=== PATIENT | male | born 1965 | race Caucasian/White ===

== ENCOUNTER 2017-04-06 08:50 | Emergency (ER) | payer BC ==
[~2017-04-06] VITALS: Ht 177.8 cm; Wt 45.5 kg
[2017-04-06] MEDS ORDERED: METO1TAB32 (09:03)
[2017-04-06] MEDS ORDERED: LISI40TAB (09:03)
[2017-04-06 09:54] LABS: BASO % 0.4 % (0.0-1.0); EOS # 0.1 K/mm3 (0.0-0.50); EOS % 1.6 % (0.0-3.0); LARGE UNSTAINED CELL # 0.2 K/mm3 (0.0-0.4); LARGE UNSTAINED CELL % 2.5 % (0.0-4.0); LYMPH # 1.8 K/mm3 (1.5-4.5); LYMPH % 23.9 % (24.0-44.0); MEAN CORPUSCULAR HEMOGLOBIN 31.6 pg (27.0-33.0); MEAN CORPUSCULAR HGB CONC 36.3 g/dl (32.0-36.5); MEAN CORPUSCULAR VOLUME 87.1 fl (80.0-96.0); MONO # 0.4 K/mm3 (0.0-0.8); MONO % 5.4 % (0.0-5.0); NEUTROPHILS # 4.9 K/mm3 (1.8-7.7); NEUTROPHILS % 66.2 % (36.0-66.0); PLATELET COUNT, AUTOMATED 303 k/mm3 (150-450); RED CELL DISTRIBUTION WIDTH 12.9 % (11.5-14.5); WHITE BLOOD COUNT 7.3 K/mm3 (4.0-10.0)
[2017-04-06] MEDS ORDERED: METOPROLOL SUCC *XL* 25MG TAB (TopROL *XL*) PO ONE (10:00)
[2017-04-06 10:08] LABS: ALBUMIN 3.7 GM/DL (3.2-5.2); ALKALINE PHOSPHATASE 75 U/L (45-117); ALT/SGPT 30 U/L (12-78); ANION GAP 8 MEQ/L (8-16); AST/SGOT 13 U/L (15-37); BILIRUBIN,DIRECT 0.1 MG/DL (0.0-0.2); BILIRUBIN,TOTAL 0.7 MG/DL (0.2-1.0); BLOOD UREA NITROGEN 14 MG/DL (7-18); CALCIUM LEVEL 9.4 MG/DL (8.5-10.1); CARBON DIOXIDE LEVEL 26 MEQ/L (21-32); CHLORIDE LEVEL 110 MEQ/L (98-107); GLOMERULAR FILTRATION RATE > 60.0 (>60); GLUCOSE, FASTING 93 MG/DL (70-105); POTASSIUM SERUM 4.2 MEQ/L (3.5-5.1); SODIUM LEVEL 144 MEQ/L (136-145); TOTAL PROTEIN 7.4 GM/DL (6.4-8.2)
[2017-04-06] MEDS ORDERED: LISINOPRIL 40 MG TAB PO ONE (10:15)
[2017-04-06] MEDS ORDERED: KETOROLAC 30 MG/ML VIAL (J1885) IV ONE (10:45)
[2017-04-06] MEDS ORDERED: ISOVUE-370 76% 100ML VIAL (Q9967) As Ordered ONE (11:05)
--- NOTE | 2017-04-06 11:43 | REP ---
CHEST, TWO VIEWS: There is no evidence of acute infiltrate. No pleural effusion is seen. The heart is normal in size. The mediastinal silhouette is unremarkable. The visualized osseous structures are intact. IMPRESSION: No acute pulmonary disease. Signed by Rm Hill MD 04/06/2017 07:32 P
--- NOTE | 2017-04-06 12:26 | REP ---
RIGHT UPPER QUADRANT ULTRASOUND: Real-time sonographic evaluation of the right upper quadrant is performed. The gallbladder demonstrates no evidence of intraluminal sludge or calculi, wall thickening or pericholecystic fluid. There is no intrahepatic or extrahepatic biliary dilatation, the common bile duct measuring 3 mm in diameter. The liver and pancreas demonstrate no gross mass. Pancreas is not well seen due to overlying bowel gas. The right kidney demonstrates no hydronephrosis or nephrolithiasis with normal size at 12.7 cm in length. IMPRESSION: Negative right upper quadrant ultrasound. Signed by Rm Hill MD 04/06/2017 07:36 P
[2017-04-06] MEDS ORDERED: CHLO125TA PO (12:47)
[2017-04-06] MEDS ORDERED: NAPR500T PO (12:47)
[2017-04-06 12:52] LABS: FREE T4 1.07 NG/DL (0.76-1.46)
[2017-04-06 12:57] VITALS: BP 140/81
--- NOTE | 2017-04-06 13:13 | REP ---
CT ANGIOGRAM OF THE CHEST: TECHNIQUE: Axial contrast enhanced images from the thoracic inlet to the upper abdomen using 100 mL Isovue 370 intravenous contrast material with multiplanar reformations. There is no CT evidence of pulmonary embolism. Heart is not enlarged. There are subcentimeter mediastinal lymph nodes which appear stable compared to the prior CT of the chest 09/15/2012 at [facility]. There is no pleural or pericardial effusion. Mild bibasilar fibroatelectatic change is noted. There is a nodule in the right lobe of the thyroid which is heterogeneous and measures about 3 cm in maximum diameter. Nonemergent thyroid ultrasound is recommended to further evaluate. There is no thoracic aortic aneurysm or dissection. The visualized upper abdominal structures appear unremarkable. IMPRESSION: No CT evidence of pulmonary embolism. Right thyroid nodule 3 cm in maximum diameter. Recommend further evaluation with thyroid ultrasound. Signed by Rm Hill MD 04/06/2017 07:38 P
--- NOTE | 2017-04-07 05:59 | ECGEPIP ---
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 RBBB NSTTW ABNORMALITIES NO PRIORS Electronically Signed On 04-07-2017 5:58:54 EDT by Sb Quinones
--- NOTE | 2017-04-07 06:00 | ECGEPIP ---
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 RBBB SIMILAR TO PRIOR ON SAME DATE Electronically Signed On 04-07-2017 6:00:22 EDT by Sb Quinones
--- NOTE | 2017-04-07 08:25 | ED PDOC ---
Post-Departure Follow-Up radiology report faxed to [facility] Dr. Maricruz caceres Sarah MD Apr 07, 2017 08:25
== END 2017-04-06 12:58 | disposition home or self-care (01) ==
LOC: M ED 08:50
DX: R09.1 Pleurisy (principal); I10 Essential (primary) hypertension; R00.1 Bradycardia, unspecified; E04.1 Nontoxic single thyroid nodule; Z79.899 Other long term (current) drug therapy; Z82.49 Family history of ischemic heart disease and other diseases of the circulatory system
CPT/HCPCS: 71020; 71275; 76705; 80048; 80076; 82550; 82553; 83690; 84439; 84443; 85025; 85379; 93005; 93041; 94010; 94760; 96374; 99285; J1885; Q9967

== ENCOUNTER → 2018-06-22 | Outpatient (REF) | payer BC | LOC: M LAB REF 13:16 | DX: L02.413 Cutaneous abscess of right upper limb (principal) | CPT/HCPCS: 87205 ==

== ENCOUNTER → 2018-09-26 | Outpatient (REF) | payer BC ==
[~2018-09-26] MED LIST: CHLO125TA PO; LISI40TA; METO1TAB32; NAPR-50 PO
[2018-09-26 13:38] LABS: BASO % 0.5 % (0.0-1.0); EOS # 0.2 10^3/uL (0.0-0.50); EOS % 2.5 % (0.0-3.0); HEMOGLOBIN 15.4 g/dl (13.5-17.5); LYMPH # 1.9 10^3/uL (1.5-4.5); LYMPH % 30.3 % (24.0-44.0); MEAN CORPUSCULAR HEMOGLOBIN 29.7 pg (27.0-33.0); MEAN CORPUSCULAR HGB CONC 34.2 g/dl (32.0-36.5); MEAN CORPUSCULAR VOLUME 86.9 fl (80.0-96.0); MONO # 0.5 10^3/uL (0.0-0.8); MONO % 8.6 % (0.0-5.0); NEUTROPHILS # 3.7 10^3/uL (1.8-7.7); NEUTROPHILS % 57.8 % (36.0-66.0); PLATELET COUNT, AUTOMATED 267 10^3/uL (150-450); RED BLOOD COUNT 5.18 10^6/uL (4.30-6.10); WHITE BLOOD COUNT 6.3 10^3/uL (4.0-10.0)
[2018-09-26 14:10] LABS: ALT/SGPT 30 U/L (12-78); BILIRUBIN,TOTAL 0.6 MG/DL (0.2-1.0); BLOOD UREA NITROGEN 17 MG/DL (7-18); CARBON DIOXIDE LEVEL 28 MEQ/L (21-32); CHLORIDE LEVEL 106 MEQ/L (98-107); CHOLESTEROL LEVEL 161 MG/DL (<200); CHOLESTEROL RISK RATIO 2.064 (<5); CREATININE FOR GFR 1.14 MG/DL (0.70-1.30); GLOMERULAR FILTRATION RATE > 60.0 (>56); GLUCOSE, FASTING 90 MG/DL (70-100); HDL CHOLESTEROL 78 MG/DL (>40); LDL CHOLESTEROL 73 MG/DL (<100); NON-HDL-C 83 MG/DL; SODIUM LEVEL 141 MEQ/L (136-145); THYROID STIMULATING HORMONE 0.784 uIU/ML (0.358-3.740); TOTAL PROTEIN 7.1 GM/DL (6.4-8.2); TRIGLYCERIDES LEVEL 51 MG/DL (<150)
== END ==
LOC: M LABDRAW1 13:05
PROVIDERS: ATTEND Family Medicine
DX: Z12.5 Encounter for screening for malignant neoplasm of prostate (principal); Z13.220 Encounter for screening for lipoid disorders; Z13.29 Encounter for screening for other suspected endocrine disorder; Z13.0 Encounter for screening for diseases of the blood and blood-forming organs and certain disorders involving the immune mechanism
CPT/HCPCS: 36415; 80053; 80061; 84443; 85025; G0103

== ENCOUNTER → 2018-10-24 | Outpatient (REF) | payer BC ==
[~2018-10-24] MED LIST changes: -NAPR-50 PO; +NAPR-837 PO
== END ==
LOC: M LAB REF 16:44
PROVIDERS: ATTEND Internal Medicine Endocrinology, Diabetes & Metabolism
DX: E04.1 Nontoxic single thyroid nodule (principal)

== ENCOUNTER 2019-08-25 21:04 | Emergency (ER) | payer BC ==
[~2019-08-25] VITALS: Ht 177.8 cm; Wt 102.3 kg
[2019-08-25] MEDS ORDERED: ECOT81TA5 PO (21:23)
[2019-08-25] MEDS ORDERED: HYDR25TAB PO (21:23)
[2019-08-25 21:40] LABS: BASO % 0.2 % (0.0-1.0); EOS # 0.2 10^3/uL (0.0-0.5); EOS % 1.1 % (0.0-3.0); HEMOGLOBIN 15.9 g/dl (13.5-17.5); LYMPH # 0.7 10^3/uL (1.5-5.0); LYMPH % 5.6 % (24.0-44.0); MEAN CORPUSCULAR HEMOGLOBIN 29.4 pg (27.0-33.0); MEAN CORPUSCULAR HGB CONC 34.6 g/dl (32.0-36.5); MONO # 0.6 10^3/uL (0.0-0.8); MONO % 4.5 % (0.0-5.0); NEUTROPHILS # 11.5 10^3/uL (1.5-8.5); NEUTROPHILS % 88.2 % (36.0-66.0); PLATELET COUNT, AUTOMATED 249 10^3/uL (150-450); RED BLOOD COUNT 5.41 10^6/uL (4.30-6.10); WHITE BLOOD COUNT 13.1 10^3/uL (4.0-10.0)
[2019-08-25 22:14] LABS: BLOOD UREA NITROGEN 17 MG/DL (7-18); CALCIUM LEVEL 9.4 MG/DL (8.5-10.1); CARBON DIOXIDE LEVEL 28 MEQ/L (21-32); CHLORIDE LEVEL 102 MEQ/L (98-107); CK-MB VALUE MASS < 1.0 NG/ML (<3.6); CPK CREATINE PHOSPHOKINASE 39 U/L (39-308); CREATININE FOR GFR 1.18 MG/DL (0.70-1.30); GLOMERULAR FILTRATION RATE > 60.0 (>56); GLUCOSE, FASTING 136 MG/DL (70-100); MB/CK RELATIVE INDEX 2.56 (< OR =4); POTASSIUM SERUM 3.7 MEQ/L (3.5-5.1); SODIUM LEVEL 138 MEQ/L (136-145); THYROID STIMULATING HORMONE 0.621 uIU/ML (0.358-3.740); TROPONIN I < 0.02 NG/ML (< 0.10)
[2019-08-25] MEDS ORDERED: NS 1,000 ML IV ONE (22:15)
[2019-08-25] MEDS ORDERED: PANTOPRAZOLE 40MG INJ (PROTONIX) (C9113) IV ONE (22:15)
[2019-08-25] MEDS ORDERED: ONDANSETRON 4MG/2ML VIAL (J2405) IV ONE (22:15)
--- NOTE | 2019-08-25 22:47 | REPVR ---
PROCEDURE INFORMATION: Exam: CT Cervical Spine Without Contrast Exam date and time: 08/25/2019 9:47 PM Age: 54 years old Clinical indication: Injury or trauma; Fall; Initial encounter; Blunt trauma; Additional info: Syncope TECHNIQUE: Imaging protocol: Computed tomography images of the cervical spine without contrast. Radiation optimization: All CT scans at this facility use at least one of these dose optimization techniques: automated exposure control; mA and/or kV adjustment per patient size (includes targeted exams where dose is matched to clinical indication); or iterative reconstruction. COMPARISON: Thyroid, ST head+neck US 12/27/2015 11:18 AM FINDINGS: Vertebrae: The cervical vertebra and facet joints appear in alignment. There is no evidence of fracture. The dens appears intact in the lateral masses of C1 appear symmetric. Discs/Spinal canal/Neural foramina: There is mild posterior osteophyte formation mid cervical region. There is osteophyte formation in the region of the neural foramina bilaterally C4 through C7. Soft tissues: There is no evidence of soft tissue swelling. Thyroid: There is a 3.3 cm round low-density nodule of the right lobe of the thyroid and I would recommend a thyroid ultrasound to be compared with previous exams. Lymph nodes: There are small lymph nodes in the right and left side of the neck. Lungs: Mild scarring in the right apical portion of the lung. IMPRESSION: 1. No evidence of fracture. 2. 3.3 cm nodule of the right lobe of the thyroid and recommend thyroid ultrasound for further evaluation to be compared with previous exam. COMMENT: Consistent with the [employer]'s Incidental Findings Committee white paper (J Am Tarun Radiol 2015): In patients aged 35 years and older with an incidental thyroid nodule equal to or greater than 1.[address], MRI or extrathyroidal US, further evaluation with dedicated thyroid US is recommended for patients with normal life expectancy and without comorbidities. For smaller nodules without suspicious features, no further evaluation or follow up is recommended. Electronically signed by: Ayaan Carter On 08/25/2019 22:47:20 PM
--- NOTE | 2019-08-25 22:54 | REPVR ---
PROCEDURE INFORMATION: Exam: CT Head Without Contrast Exam date and time: 08/25/2019 9:47 PM Age: 54 years old Clinical indication: Syncope and collapse TECHNIQUE: Imaging protocol: Computed tomography of the head without contrast. Radiation optimization: All CT scans at this facility use at least one of these dose optimization techniques: automated exposure control; mA and/or kV adjustment per patient size (includes targeted exams where dose is matched to clinical indication); or iterative reconstruction. COMPARISON: Thyroid, ST head+neck US 12/27/2015 11:18 AM FINDINGS: Brain: There is no evidence of intracranial bleed. Ventricles: Normal-appearing ventricles. Bones/joints: There is no evidence of fracture. Sinuses: Clear paranasal sinuses. Mastoid air cells: Clear mastoid air cells. Soft tissues: There is no evidence of soft tissue swelling. IMPRESSION: 1. No evidence of bleed. 2. No evidence of mass effect. Electronically signed by: Ayaan Carter On 08/25/2019 22:53:36 PM
[2019-08-25] MEDS ORDERED: ZOFR4TAB16 PO (23:36)
[2019-08-25 23:45] VITALS: BP 118/71
--- NOTE | 2019-08-26 07:53 | REP ---
Clinical: Epigastric and abdominal pain. Technique: Upright view of the chest with supine and upright views of the abdomen and pelvis. Findings: Frontal upright view of the chest demonstrates no acute cardiopulmonary process or free air below the diaphragm to suspect pneumoperitoneum. Supine and upright views of the abdomen and pelvis demonstrate nonspecific bowel gas pattern without obstruction or perforation. No organomegaly. No abnormal calcifications. Skeletal structures normal for age. Impression: Nonspecific bowel gas pattern. Electronically Signed by Ladarius Sue MD 08/26/2019 07:44 A
--- NOTE | 2019-08-26 20:04 | ECGEPIP ---
[facility] - ED Test Date: 2019-08-25 Pat Name: CARYN SALVADOR Department: Room: - Gender: Male Counselor Aide: LETI : 1965 Requested By: MAY Zaidi Order Number: [id number] Reading MD: Erika Colvin Measurements Intervals [place] Rate: 71 P: 38 MN: 152 QRS: -19 QRSD: 98 T: 73 QT: 357 QTc: 388 Interpretive Statements SINUS RHYTHM INCOMPLETE RIGHT BUNDLE BRANCH BLOCK NONSPECIFIC T-WAVE ABNORMALITY INCREASED RATE 04/06/17 Electronically Signed on 08-26-2019 20:04:36 EST by Erika Colvin
--- NOTE | 2019-08-27 19:13 | ED PDOC ---
Post-Departure Follow-Up jaja juan faxed formal report of ct neck for fu Maddie Wells MD Aug 27, 2019 19:13
== END 2019-08-26 00:04 | disposition home or self-care (01) ==
LOC: M ED 21:04
DX: R55 Syncope and collapse (principal); K29.70 Gastritis, unspecified, without bleeding; I10 Essential (primary) hypertension; F17.200 Nicotine dependence, unspecified, uncomplicated; Z79.899 Other long term (current) drug therapy; Z79.82 Long term (current) use of aspirin
CPT/HCPCS: 70450; 72125; 74021; 80048; 82550; 82553; 83605; 84443; 84484; 85025; 93005; 93041; 94760; 96361; 96374; 96375; 99285; C9113; J2405

== ENCOUNTER → 2020-11-25 | Outpatient (REF) | payer BC ==
[~2020-11-25] MED LIST changes: +ECOT81TA5 PO; +HYDR-3490 PO; -LISI40TA; +LISI40TA4; +ZOFR4TAB16 PO
[2020-11-25 11:13] LABS: BASO # 0.1 10^3/uL (0.0-0.2); BASO % 0.7 % (0.0-1.0); EOS # 0.2 10^3/uL (0.0-0.5); EOS % 2.9 % (0.0-3.0); HEMATOCRIT 44.4 % (42.0-52.0); HEMOGLOBIN 14.8 g/dl (13.5-17.5); LYMPH # 2.3 10^3/uL (1.5-5.0); LYMPH % 30.8 % (24.0-44.0); MEAN CORPUSCULAR HGB CONC 33.3 g/dl (32.0-36.5); MEAN CORPUSCULAR VOLUME 87.1 fl (80.0-96.0); MONO # 0.6 10^3/uL (0.0-0.8); MONO % 8.3 % (2.0-8.0); NEUTROPHILS # 4.3 10^3/uL (1.5-8.5); NEUTROPHILS % 56.9 % (36.0-66.0); PLATELET COUNT, AUTOMATED 265 10^3/uL (150-450); WHITE BLOOD COUNT 7.6 10^3/uL (4.0-10.0)
[2020-11-25 11:48] LABS: ALBUMIN 3.9 GM/DL (3.2-5.2); ALT/SGPT 25 U/L (12-78); BILIRUBIN,TOTAL 0.6 MG/DL (0.2-1.0); BLOOD UREA NITROGEN 13 MG/DL (7-18); CALCIUM LEVEL 9.8 MG/DL (8.5-10.1); CARBON DIOXIDE LEVEL 29 MEQ/L (21-32); CHLORIDE LEVEL 105 MEQ/L (98-107); CHOLESTEROL LEVEL 161 MG/DL (<200); CREATININE FOR GFR 0.98 MG/DL (0.70-1.30); FREE T4 1.07 NG/DL (0.76-1.46); GLOMERULAR FILTRATION RATE > 60.0 (>56); GLUCOSE, FASTING 85 MG/DL (70-100); HDL CHOLESTEROL 77 MG/DL (>40); LDL CHOLESTEROL 74 MG/DL (<100); NON-HDL-C 84 MG/DL; POTASSIUM SERUM 3.9 MEQ/L (3.5-5.1); SODIUM LEVEL 140 MEQ/L (136-145); THYROID STIMULATING HORMONE 0.737 uIU/ML (0.358-3.740); TOTAL PROTEIN 7.1 GM/DL (6.4-8.2); TRIGLYCERIDES LEVEL 51 MG/DL (<150)
[2020-11-26 20:07] LABS: PSA TOTAL 0.5 ng/mL (0.0-4.0)
== END ==
LOC: M PLALAB 09:54
PROVIDERS: ATTEND Physician Assistant
DX: I10 Essential (primary) hypertension (principal); E04.9 Nontoxic goiter, unspecified; Z12.5 Encounter for screening for malignant neoplasm of prostate

== ENCOUNTER → 2021-08-18 | Outpatient (CLI) | payer BC ==
[2021-08-18 16:38] LABS: FREE T4 1.04 NG/DL (0.76-1.46); THYROID STIMULATING HORMONE 0.436 uIU/ML (0.358-3.740)
== END ==
LOC: M WUC 13:37
PROVIDERS: ATTEND Nurse Practitioner Adult Health
DX: E04.9 Nontoxic goiter, unspecified (principal)

== ENCOUNTER → 2021-08-31 | Outpatient (CLI) | payer BC | LOC: M RAD 16:08 | PROVIDERS: ATTEND Nurse Practitioner Adult Health | DX: E04.2 Nontoxic multinodular goiter (principal) ==

== ENCOUNTER → 2022-11-09 | Outpatient (CLI) | payer BC | LOC: M RAD 14:59 | PROVIDERS: ATTEND Nurse Practitioner Adult Health | DX: E04.1 Nontoxic single thyroid nodule (principal) ==

== ENCOUNTER → 2023-09-03 | Outpatient (CLI) | payer BC ==
[2023-09-03 10:46] LABS: BLOOD UREA NITROGEN 15 MG/DL (9-23); CALCIUM LEVEL 9.2 MG/DL (8.5-10.1); CARBON DIOXIDE LEVEL 30 MMOL/L (20-31); CHLORIDE LEVEL 108 MMOL/L (98-107); CREATININE FOR GFR 1.03 MG/DL (0.70-1.30); GLOMERULAR FILTRATION RATE > 60.0 (>56); GLUCOSE, FASTING 89 MG/DL (60-100); POTASSIUM SERUM 4.5 MMOL/L (3.5-5.1); SODIUM LEVEL 143 MMOL/L (136-145)
== END ==
LOC: M PLALAB 08:53
PROVIDERS: ATTEND Nurse Practitioner Adult Health
DX: I10 Essential (primary) hypertension (principal)

== ENCOUNTER → 2023-12-13 | Outpatient (CLI) | payer BC | LOC: M RAD 14:24 | PROVIDERS: ATTEND Nurse Practitioner Adult Health | DX: E04.9 Nontoxic goiter, unspecified (principal) ==